=== PATIENT | male | born 2005 | race Caucasian/White ===

== ENCOUNTER 2024-01-01 18:29 | Emergency (ER) | payer OTHER ==
[~2024-01-01] VITALS: Ht 180.3 cm; Wt 77.1 kg
[2024-01-01 20:11] VITALS: BP 131/60; TEMP 98.4; O2SAT 100
== END 2024-01-01 20:11 | disposition home or self-care (01) ==
LOC: ER 18:40
DX: S00.03XA Contusion of scalp, initial encounter (principal); X58.XXXA Exposure to other specified factors, initial encounter; Y93.89 Activity, other specified; Y92.89 Other specified places as the place of occurrence of the external cause; Y99.8 Other external cause status